=== PATIENT | male | born 1975 | race Caucasian/White ===

== ENCOUNTER 2019-11-21 08:08 | Observation (INO) ==
--- NOTE | 2019-11-14 10:44 | Anesthesiology Consultation ---
Date of Service November 14, 2019 Assessment & Plan (1) Encounter for pre-operative examination: *Per nurse phone assessment on 11/12: Travel screen negative. No known COVID-19 positive contacts or current COVID-19 related symptoms. Surgeon arranging preop COVID testing. Awaiting results. - No preop testing received: BMI >40. Will order BMP, EKG for AM DOS. Chart Review Chart Review: Acceptable Risk for Surgery (pending preop labs, EKG AM DOS) and Patient NOT seen in Pre Admission Testing History Surgery Operation Date: 11/21/19 08:35 Proposed Procedures p Tonsillectomy, Uvulectomy - Rainer Quispe MD Height/Weight Height: 5 ft 8 in Weight: 129.274 kg Allergies Allergy/AdvReac Type Severity Reaction Status Date / Time No Known Drug Allergies Allergy Unknown Verified 11/13/19 12:06 Medications Home Medications Medication Instructions Recorded Confirmed Last Taken famotidine 20 mg PO BID PRN 07/13/19 11/13/19 Unknown diphenhydramine HCl [Allergy] 25 mg PO HS PRN 11/13/19 11/13/19 Unknown Past Medical History Medical History Asthma hx Chronic back pain sciatica Laryngopharyngeal reflux disease Morbid obesity Obstructive sleep apnea CPAP, non-compliant Past Family History Family History Mother Breast cancer Grandmother Lung cancer Other Cardiac disorder No family history of adverse response to anesthesia No family history of bleeding disorder Thyroid disease Past Surgical History Surgical History History of esophagogastroduodenoscopy (EGD) History of oral surgery History of removal of cyst History of removal of skin mole S/P myringotomy with insertion of tube Social History Smoking Status: Never smoker Do You Dip or Chew Tobacco: No Hx Alcohol Use: Yes Alcohol type: beer Alcohol Intake Frequency Comment: RARELY Hx Substance Use: No
[~2019-11-21 08:08] MED LIST: LR 15ML/HR IV SCH
--- NOTE | 2019-11-21 08:49 | History & Physical Bridge Note ---
Date of Service November 21, 2019 History & Physical Bridge Note I have examined the patient, reviewed the History & Physical and in the interval since the performance of the History & Physical I have noted the following changes of clinical significance: no changes noted Patient/parent is aware of COVID-19 risk. Patient is asymptomatic of any COVID-19 symptoms. Patient has had preoperative testing for COVID-19 which was negative.
[2019-11-21] MEDS ORDERED: ONDANSETRON INJ 2 MG/ML 2 ML VIAL IV PRN (08:52)
[2019-11-21] MEDS ORDERED: DEXAMETHASONE SOD INJ 4 MG/ML VIAL ONE (09:30)
[2019-11-21] MEDS ORDERED: PROPOFOL IV EMULSION 10 MG/ML 20 ML VIAL IV ONE ×2 (09:30→10:37)
[2019-11-21] MEDS ORDERED: ONDANSETRON INJ 2 MG/ML 2 ML VIAL ONE (09:30)
[2019-11-21] MEDS ORDERED: GLYCOPYRROLATE 0.2 MG/ML VIAL ONE ×2 (09:30→10:37)
[2019-11-21] MEDS ORDERED: NEOSTIGMINE METHYLSULFATE 5 MG/5 ML SYR ONE (09:30)
[2019-11-21] MEDS ORDERED: MIDAZOLAM HCL 1 MG/ML 2ML VIAL ONE (09:30)
[2019-11-21] MEDS ORDERED: fentaNYL citrate 100 MCG/2 ML VIAL ONE ×3 (09:30→11:33)
[2019-11-21] MEDS ORDERED: LIDOCAINE HCL 2% 2 ML VIAL/AMP(20MG/ML) INFIL ONE (09:30)
[2019-11-21 09:38] LABS: BUN Creatinine Ratio 15.9 (10-20); Calcium 9.1 mg/dl (8.5-10.1); Creatinine Clr Calc Pharmacy 110.7 ml/min; Est GFR (African American) 91.1; Est GFR (Non-African American) 78.6; Potassium 4.1 mmol/L (3.5-5.1)
[2019-11-21] MEDS ORDERED: LIDOCAINE 2% JELLY 5 ML TUBE ONE (09:50)
[2019-11-21] MEDS ORDERED: ROCURONIUM BROMIDE 10 MG/ML 5 ML VIAL IV ONE (10:37)
[2019-11-21] MEDS ORDERED: LARYING-O-JET KIT (LTA) ONE (10:37)
[2019-11-21] MEDS ORDERED: OXYMETAZOLINE 0.05% 30 ML BTL ONE (10:43)
--- NOTE | 2019-11-21 11:24 | Post Operative Brief Note ---
PG Immediate Post Op with CF Date of Surgery November 21, 2019 Pre & Post Diagnosis Operation Date: 11/21/19 09:35 <No data on this case meets the specified criteria> I identified the patient and participated in the time-out.: Yes Procedure Operation Date: 11/21/19 09:35 <No data on this case meets the specified criteria> Surgeon Rainer Quispe MD Spanisher none Estimated Blood Loss 15 Findings See Below 1. 2+ tonsils, inflamed 2. Elongated, hypertrophied uvula 3, 3+ lateral pharyngeal dunham
--- NOTE | 2019-11-21 11:40 | Anesthesiology Progress Note ---
Date of Service November 21, 2019 Anesthesia Post Procedure Vital Signs Vital Signs: Temp Pulse Resp BP Pulse Ox 11/21/19 08:29 36.7 C 89 18 126/88 96 Transfer of Care Handoff Completed per policy Notes Mental Status: alert / awake / arousable Patient Amnestic to Procedure: Yes Nausea / Vomiting: adequately controlled Pain: adequately controlled Airway Patency, RR, SpO2: stable & adequate BP & HR: stable & adequate Hydration State: stable & adequate Anesthetic Complications: no major complications apparent
[2019-11-21] MEDS: HYDROmorphone INJ 1 MG/ML SYRINGE IV PRN ×7 (11:59→12:29)
[2019-11-21] MEDS ORDERED: HYDROmorphone INJ 1 MG/ML SYRINGE ONE (12:00)
--- NOTE | 2019-11-21 12:21 | Operative Report (OR) ---
DATE OF OPERATION: 11/21/2019 PREOPERATIVE DIAGNOSES: 1. Tonsillar hypertrophy. 2. Recurrent uvular edema. 3. Obstructive sleep apnea. POSTOPERATIVE DIAGNOSES: 1. Tonsillar hypertrophy. 2. Recurrent uvular edema. 3. Obstructive sleep apnea. PROCEDURE: Tonsillectomy and partial uvulectomy. SURGEON: Dr. Rainer Quispe. ANESTHESIA: General orotracheal. ESTIMATED BLOOD LOSS: 15 mL. COMPLICATIONS: None. INTRAOPERATIVE FINDINGS: 1. 2+ tonsils bilaterally. 2. Elongated uvula. 3. 3+ lateral pharyngeal dunham. SPECIMENS: 1. Right tonsil. 2. Left tonsil. 3. Partial uvulectomy. INDICATIONS FOR THE PROCEDURE: The patient is a 44-year-old male with a history of severe obstructive sleep apnea with an AHI of 32, who was seen in the office in followup after several presentations to the Emergency Room with acute pharyngeal swelling, awakening him from sleep. Each episode was treated with antibiotics and steroids with improvement, however, episodes recurred shortly after discontinuing steroid use. The patient was treated with conservative therapy, but continued to have episodes. CT imaging showed significant bilateral tonsillar hypertrophy and uvular edema was complete obstruction of the oropharyngeal airway, both during acute episodes and after treatment with steroids. He was noted to have tonsillar hypertrophy and uvular elongation in the office. It was recommended that he undergo bilateral tonsillectomy and partial uvulectomy in the operating room. The risks and benefits of the procedure were discussed in detail and the patient elected to proceed with surgery. Informed consent was obtained. A preprocedure COVID test was negative. DETAILS OF THE PROCEDURE: The patient was identified in the preoperative holding area and brought back to the operating room. After the successful induction of general orotracheal anesthesia, the head of the bed was turned 90 degrees. A shoulder roll was placed. Adequate eye protection was used. The patient was prepped and draped in the usual fashion for a tonsillectomy with partial uvulectomy. A surgical timeout was performed. The patient's neck was gently extended and a McIvor mouth gag was inserted into the oral cavity and used to expose the oropharynx. It was suspended on a Acuna stand. 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 The FIO2 was confirmed to be below 30%. The right tonsil was grasped with a curved Allis clamp and retracted medially. Electrocautery was used to carefully dissect the tonsil free from the tonsillar fossa with preservation of the muscular capsule. The tonsil was friable and diffuse oozing was noted. This was controlled with suction cautery. The tonsil was then removed from the oropharynx and passed off the table for permanent pathology. Hemostasis was achieved using suction cautery and the superior and inferior poles were prophylactically cauterized. Attention was then turned to the left tonsil, which was grasped with a curved Allis clamp and retracted medially. Electrocautery was used to carefully dissect the left tonsil free from the tonsillar fossa with preservation of the muscular capsule. Adequate hemostasis was achieved using suction cautery. The superior and inferior and poles were prophylactically cauterized. Attention was then turned to the partial uvulectomy. The inferior two-thirds of the uvula were sharply excised using tenotomy scissors. The uvular artery was encountered and cauterized using suction cautery. Sharp dissection was used to elevate the uvular mucosa over the underlying muscle to create a small flap. The uvula was closed in interrupted 3-0 Vicryl mattress sutures. The oral cavity and oropharynx were then irrigated with copious saline and suctioned clear. Adequate hemostasis was noted. An orogastric tube was used to decompress the stomach and remove from the patient. The McIvor mouth gag was then taken down from suspension and removed from the patient's oral cavity. The patient was turned over to the anesthesia team and extubated without difficulty. He was transferred to the PACU in good condition. I was present and performed the entire procedure myself. I attest to the content of the Intraoperative Record and any orders documented therein. Any exceptions are noted below. MANAV
--- NOTE | 2019-11-21 13:26 | Electrocardiogram Report ---
Test Reason : Blood Pressure : / mmHG Vent. Rate : 086 BPM Atrial Rate : 086 BPM P-R Int : 152 ms QRS Dur : 082 ms QT Int : 356 ms P-R-T Axes : 042 048 047 degrees QTc Int : 426 ms Normal sinus rhythm Nonspecific T wave abnormality Abnormal ECG No previous ECGs available Confirmed by Colt Franco ([id number]) on 11/21/2019 1:26:33 PM Referred By: Rainer Quispe Confirmed By:Colt Franco
[2019-11-21] MEDS: SODIUM CHLORIDE 0.9% 1000ML 1,000 ML IV SCH (13:33)
[2019-11-21] MEDS: OXYCODONE HCL SOLN 5 MG/5 ML UDC PO PRN ×3 (13:45→21:43)
[2019-11-21] MEDS: ACETAMINOPHEN SUSP 325 MG/10.15 ML UDC PO SCH ×2 (13:48→15:54)
[2019-11-21] MEDS: dexAMETHasone 8 MG in SYRINGE 0 ML IV SCH (18:51)
[2019-11-22] MEDS: ACETAMINOPHEN SUSP 325 MG/10.15 ML UDC PO SCH ×2 (00:01→05:59)
[2019-11-22] MEDS: OXYCODONE HCL SOLN 5 MG/5 ML UDC PO PRN ×2 (02:38→07:00)
[2019-11-22] MEDS: SODIUM CHLORIDE 0.9% 1000ML 1,000 ML IV SCH (02:38)
[2019-11-22] MEDS: dexAMETHasone 8 MG in SYRINGE 0 ML IV SCH (03:16)
--- NOTE | 2019-11-22 13:37 | Discharge Summary (DS) ---
ADMITTING DIAGNOSIS: 1. Severe obstructive sleep apnea. 2. Status post tonsillectomy and uvulectomy. DISCHARGE DIAGNOSES: Same. PROCEDURES: Tonsillectomy and uvulectomy 11/21/2019. MEDICATIONS: The patient is discharged on all home medications as well as oxycodone 5 mg per mL, 5 mg every 4 hours as needed for severe pain, acetaminophen 650 mg q. 6 hours. HOSPITAL COURSE: The patient is a 44-year-old male who underwent a tonsillectomy and partial uvulectomy 11/21/2019 for recurrent pharyngeal swelling and severe obstructive sleep apnea. There were no intraoperative complications. He was admitted to the floor for observation postoperatively given his severe obstructive sleep apnea with an AHI of 33. His hospital course was uncomplicated. He had no desaturations overnight on observation. His pain was controlled with oral medications. There were no bleeding episodes. He tolerated a p.o. diet. He was stable for discharge home on postop day 1. On the day of discharge, he was ambulating, voiding spontaneously, and tolerating a soft diet. His pain was controlled. He will follow up in 3-4 weeks or sooner if needed. PHYSICAL EXAMINATION: GENERAL: The patient is afebrile with stable vital signs, no desaturations on room air. He is well nourished and well developed and in no acute distress. He is obese. HEENT: Oropharyngeal exam reveals bilateral tonsillar fossae which are healing as expected. His sutures are in place at his partial uvulectomy site. He has a large oral tongue. He is managing his secretions well. There is no respiratory distress or stridor. DIET: Soft diet x2 weeks. ACTIVITY RESTRICTION: The patient was instructed to maintain reduced activity for 2 weeks. BATHING: No restrictions. FOLLOWUP: The patient will follow up with Dr. Quispe in 3-4 weeks or sooner if needed. I spent 30 minutes coordinating care and arranging this discharge. MANAV
== END 2019-11-22 10:30 | disposition home or self-care (01) ==
LOC: ASU 08:08 → 3N 11:24 → INTOOBSV 11:24

== ENCOUNTER 2019-11-24 21:40 | Observation (INO) ==
[2019-11-24] MEDS ORDERED: ONDANSETRON INJ 2 MG/ML 2 ML VIAL IV STA (21:57)
[2019-11-24] MEDS ORDERED: SODIUM CHLORIDE 0.9% 1000ML 1,000 ML IV ONE (21:57)
[2019-11-24] MEDS ORDERED: DEXAMETHASONE SOD INJ 10 MG/ML VIAL IV ONE (21:57)
[2019-11-24] MEDS ORDERED: MoRPHine SULFATE 4 MG/ML 1 ML CARP\\VIAL IV STA (21:57)
--- NOTE | 2019-11-24 22:05 | Emergency Department Note ---
History of Present Illness General Chief complaint: Dental/Oral Stated complaint: TONGUE SWOLLEN, CANT SWALLOW Time Seen by Provider: 11/24/19 21:51 History of Present Illness Maximum Pain Intensity: 9 This 44-year-old presents to the ER complaining of difficulty swallowing with throat swelling after recent tonsillectomy and uvulectomy by Dr. Quispe Location: Throat Quality: Hard to swallow Severity: Moderate Duration: Past few days Timing: Started a few days ago Context: Symptoms got worse and patient came in Modifying factors: better with nothing; worse with following Patient is been taking his OxyIR. Patient states he cannot tolerate the solids. He can only tolerate popsicles. He has pain with opening his mouth. He states he feels like his tongue is swollen. Patient denies chest pain, dyspnea, fevers, flulike illness. Home Medications Home Medications Medication Instructions Recorded Confirmed Type acetaminophen 1,000 mg PO QID PRN 11/24/19 11/24/19 History oxycodone 5 mg PO Q4H PRN 11/24/19 11/24/19 History Allergies Allergy/AdvReac Type Severity Reaction Status Date / Time No Known Allergies Allergy Verified 11/24/19 22:46 Past Med/Surg History Medical History Asthma hx Chronic back pain sciatica Laryngopharyngeal reflux disease Morbid obesity Obstructive sleep apnea CPAP, non-compliant Surgical History History of esophagogastroduodenoscopy (EGD) History of oral surgery History of removal of cyst History of removal of skin mole S/P myringotomy with insertion of tube Family History Mother Breast cancer Grandmother Lung cancer Other Cardiac disorder No family history of adverse response to anesthesia No family history of bleeding disorder Thyroid disease Social History Smoking Status: Never smoker Tobacco Type: Cigarettes Second Hand Exposure: Yes (FAMILY SMOKED); Hx Alcohol Use: Yes Alcohol type: beer Hx Substance Use: No Preferred Language: Belarusian Communication Ability: Effective Can Handler Required: No Beliefs That Will Affect Care: None marital status: Current Living Situation: Spouse and Family current occupational status: employed Feels Safe at Home: Yes Review of Systems A total of 10 systems reviewed and were otherwise negative Physical Exam Vital Signs Vital Signs - 24 hr 11/24/19 21:42 11/24/19 21:50 11/24/19 22:23 Temperature 36.9 C Temperature Source Oral Pulse Rate 98 H Pulse Rate [Finger] Respiratory Rate 18 Respiratory Depth Normal Blood Pressure 144/89 H Blood Pressure [Right Arm] 168/102 H Blood Pressure Mean 107 Blood Pressure Mean [Right Arm] 124 Blood Pressure Position [Right Arm] Lying Pulse Oximetry 95 95 Oxygen Delivery Method Room Air Room Air Sepsis Recent Fever Within 48 Hours No Sepsis New/Unexplained Change in Mental Status N/A Sepsis Action Taken by Nursing No Action Required 11/24/19 23:03 11/25/19 00:27 Temperature Temperature Source Pulse Rate Pulse Rate [Finger] 91 H 87 Respiratory Rate 20 18 Respiratory Depth Normal Normal Blood Pressure Blood Pressure [Right Arm] 134/84 148/88 H Blood Pressure Mean Blood Pressure Mean [Right Arm] 100 108 Blood Pressure Position [Right Arm] Pulse Oximetry 92 92 Oxygen Delivery Method Room Air Room Air Sepsis Recent Fever Within 48 Hours Sepsis New/Unexplained Change in Mental Status Sepsis Action Taken by Nursing VITALS: Vitals are noted on the nurse's note and reviewed by myself. Vital signs stable. GENERAL: Pleasant male speaking in full sentences, in no acute distress, nondiaphoretic, well-developed well-nourished. SKIN: The skin was without rashes, erythema, edema, or bruising. There is no tenting of the skin. Capillary reflex less than 2 seconds. HEAD: Normocephalic atraumatic. EARS: External auditory canals clear, tympanic membranes pearly echevarria without erythema or effusion bilaterally. EYES: Pupils equal round and reactive to light and accommodation. Conjunctivae without injection, sclerae without icterus. Extraocular movements intact. NOSE: Patent, turbinates without inflammation or discharge. No sinus tenderness. MOUTH: Mucous membranes moist. Trismus present. Pharynx healing tissue in the back of throat with no obvious bleeding. Airway patent. Tongue does not deviate. NECK: Supple without nuchal rigidity. No lymphadenopathy. No thyromegaly. Cervical spine is nontender. No JVD. HEART: Regular rate and rhythm LUNGS: Clear to auscultation bilaterally without wheezes, rales or rhonchi. No retractions or accessory muscle use. ABDOMEN: Positive bowel sounds x 4. Normal tympanic percussion. Soft, nontender, without masses or organomegaly. Borja sign negative. No guarding or rebound tenderness. No CVA tenderness MUSCULOSKELETAL: No muscle atrophy, erythema, or edema noted. NEURO: Patient was alert and oriented to person place and time. Normal sensation to light and sharp touch. No focal neurological deficits. Course Administered Medications Discontinued Medications Dexamethasone (Dexamethasone Sod Inj 10 Mg/Ml Vial) 10 mg IV NOW ONE Stop: 11/24/19 21:58 Last Admin: 11/24/19 22:15 Dose: 10 mg Documented by: [id number] Sodium Chloride (Nss 1000ml) 1,000 mls @ 999 mls/hr IV .Q1H1M ONE Stop: 11/24/19 22:57 Last Infusion: 11/24/19 23:15 Dose: 0 mls/hr Documented by: [id number] Admin: 11/24/19 22:14 Dose: 999 mls/hr Documented by: [id number] Ioversol (Ioversol 100ml) 93 ml IV ONCE ONE Stop: 11/24/19 23:29 Last Admin: 11/24/19 23:28 Dose: 93 ml Documented by: [id number] Morphine Sulfate (Morphine Sulfate 4 Mg/Ml 1 Ml Carp\Vial) 4 mg IV NOW STA Stop: 11/24/19 21:58 Last Admin: 11/24/19 22:15 Dose: 4 mg Documented by: [id number] Morphine Sulfate (Morphine Sulfate 4 Mg/Ml 1 Ml Carp\Vial) 4 mg IV NOW STA Stop: 11/25/19 00:20 Last Admin: 11/25/19 00:26 Dose: 4 mg Documented by: [id number] Ondansetron HCl (Ondansetron Inj 2 Mg/Ml 2 Ml Vial) 4 mg IV NOW STA Stop: 11/24/19 21:58 Last Admin: 11/24/19 22:15 Dose: 4 mg Documented by: [id number] Medical Decision Making Medical Records Attestation: I reviewed the patient's medical records. Home Medications Current Medication List: was personally reviewed by me Laboratory Data Attestation: I reviewed the patient's lab results. Result diagrams: 11/24/19 Unknown 11/24/19 22:23 Lab Results 11/24/19 11/24/19 Range/Units 22:23 Unknown WBC 13.74 H (4.8-10.8) K/uL RBC 5.02 (4.7-6.1) M/uL Hgb 14.4 (14.0-18.0) g/dL Hct 43.0 (42-52) % MCV 85.7 (80-100) fL MCH 28.7 (25-34) pg MCHC 33.5 (32-36) g/dL RDW Std Deviation 39.8 (36.4-46.3) fL RDW Coeff of Damaso 12.7 (11.5-14.5) % Plt Count 289 (130-400) K/uL MPV 9.2 (7.4-10.4) fL Immature Gran % (Auto) 0.6 % Neut % (Auto) 61.8 % Lymph % (Auto) 27.4 % Morris % (Auto) 7.4 % Eos % (Auto) 2.7 % Baso % (Auto) 0.1 % Neut # (Auto) 8.50 H (1.4-6.5) K/uL Lymph # (Auto) 3.76 H (1.2-3.4) K/uL Morris # (Auto) 1.01 H (0.11-0.59) K/uL Eos # (Auto) 0.37 (0-0.5) K/uL Baso # (Auto) 0.02 (0-0.2) K/uL Immature Gran # (Auto) 0.08 H (0.00-0.02) K/uL Sodium 139 (136-145) mmol/L Potassium 3.7 (3.5-5.1) mmol/L Chloride 104 (98-107) mmol/L Carbon Dioxide 28 (21-32) mmol/L Anion Gap 7.0 (3-11) BUN 17 (7-18) mg/dl Creatinine 1.06 (0.6-1.4) mg/dl Est Cr Clr Drug Dosing 116.5 ml/min Est GFR ( Amer) 98.4 Est GFR (Non-Af Amer) 84.9 BUN/Creatinine Ratio 16.0 (10-20) Glucose 102 H (70-99) mg/dl Calcium 9.2 (8.5-10.1) mg/dl Total Bilirubin 0.8 (0.2-1) mg/dl AST 14 L (15-37) U/L ALT 49 (12-78) U/L Alkaline Phosphatase 96 (45-117) U/L Total Protein 7.3 (6.4-8.2) gm/dl Albumin 3.6 (3.4-5.0) gm/dl Globulin 3.7 (2.5-4.0) gm/dl Albumin/Globulin Ratio 1.0 (0.9-2) Imaging Data Attestation: I personally reviewed and interpreted this imaging study as follows: Blood Pressure Blood Pressure Findings: Elevated blood pressure Blood Pressure Disposition: Referred to patients primary care provider [facility] Narrative Prior records reviewed and summarized as above. Triage Nursing notes reviewed. Additional history obtained from family. The patient's history was concerning for swelling and pain in the mouth after surgery Differential diagnosis: Etiologies such as postoperative complication, soft tissue swelling, cellulitis, abscess, MRSA infection, as well as others were entertained.. Physical examination: As above ER treatment provided: Morphine, Zofran, IV fluids, Decadron On reassessment the patient felt better. Diagnostics interpreted by me: The labs revealed mild leukocytosis Imaging studies: CT NECK: Mild soft tissue edema within the subcutaneous fat of the chin. No fluid collection. Secretions within the vallecula. Patent vasculature. Tonsils are unremarkable. No acute abnormality within the parotid, sublingual, or thyroid glands. No acute osseous abnormality. Airspace opacities in the right upper lobe, infectious or inflammatory. Radiologist: Jacob Johnson MD Consultation: A consultation was placed with ENT on-call, Dr. Kelley and recommends hydration and medical admission. Dr. Hadley was consulted and will evaluate the patient. The case was discussed and diagnostics were reviewed. The patient was evaluated in the ER for further treatment. This appears to be dehydration secondary to postsurgical pain. Patient was hydrated as above. He is unable to swallow and will be admitted for hydration. Medicine and ENT were consulted. By the evaluation outlined above emergent etiologies such as abscess, as well as others were deemed relatively unlikely. The pt informed about the findings as listed above. All questions were answered and pleased with the treatment. The chart was completed utilizing [employer] voice recognition software. Grammatical errors, random word insertions, pronoun errors, and incomplete sentences are an occassional consequence of this system due to software limitations, ambient noise, and hardware issues. Any formal questions or concerns about the content, text, or information contained within the body of this dictation should be directly addressed to the physician driller's assistant for clarification. Impression & Plan Acute dehydration, History of oral surgery, Acute oral pain Discharge Plan Visit Data Chief Complaint: Dental/Oral Stated Complaint: TONGUE SWOLLEN, CANT SWALLOW ED Provider: Miguel Mercer ED Midlevel Provider: Renee Singh Discharge Problem: Acute dehydration, History of oral surgery, Acute oral pain Patient Disposition: Being Evaluated by Hospitalist Condition: Good Forms Stand Alone Forms: [facility] [place] [employer] Prescriptions Prescriptions: No Action oxycodone 5 mg/5 mL solution 5 mg PO Q4H PRN (Reason: Pain) RF: 0 acetaminophen 160 mg/5 mL Suspension 1,000 mg PO QID PRN (Reason: Pain) RF: 0 Referrals Referrals: Lavon Coleman MD [Primary Care Provider] -
[2019-11-24 22:39] LABS: Basophils # (auto) 0.02 K/uL (0-0.2); Basophils % (auto) 0.1 %; Eosinophils # (auto) 0.37 K/uL (0-0.5); Eosinophils % (auto) 2.7 %; Hemoglobin 14.4 g/dL (14.0-18.0); Immature Granulocytes # (auto) 0.08 K/uL (0.00-0.02); Immature Granulocytes % (auto) 0.6 %; Lymphocytes # (auto) 3.76 K/uL (1.2-3.4); Lymphocytes % (auto) 27.4 %; Mean Corpuscular Hemoglobin 28.7 pg (25-34); Mean Corpuscular Hgb Conc 33.5 g/dL (32-36); Mean Corpuscular Volume 85.7 fL (80-100); Mean Platelet Volume 9.2 fL (7.4-10.4); Monocytes # (auto) 1.01 K/uL (0.11-0.59); Monocytes % (auto) 7.4 %; Neutrophils % (auto) 61.8 %; Platelet Count 289 K/uL (130-400); RDW Coefficient of Variation 12.7 % (11.5-14.5); RDW Standard Deviation 39.8 fL (36.4-46.3); Red Blood Count 5.02 M/uL (4.7-6.1); White Blood Count 13.74 K/uL (4.8-10.8)
[2019-11-24 22:57] LABS: Albumin Level 3.6 gm/dl (3.4-5.0); Calcium 9.2 mg/dl (8.5-10.1); Creatinine Clr Calc Pharmacy 116.5 ml/min; Est GFR (African American) 98.4; Est GFR (Non-African American) 84.9; Potassium 3.7 mmol/L (3.5-5.1)
[2019-11-24 23:00] LABS: Bilirubin,Total 0.8 mg/dl (0.2-1); Globulin 3.7 gm/dl (2.5-4.0); Total Protein 7.3 gm/dl (6.4-8.2)
[2019-11-24] MEDS ORDERED: IOVERSOL 100ml IV ONE (23:28)
[2019-11-25] MEDS ORDERED: MoRPHine SULFATE 4 MG/ML 1 ML CARP\\VIAL IV STA (00:19)
[2019-11-25] MEDS ORDERED: ALBUT/IPRATROP 3MG/0.5MG NEB 3 ML VIAL NEB PRN (01:06)
--- NOTE | 2019-11-25 01:09 | History & Physical Report ---
Date of Service November 25, 2019 Assessment & Plan (1) Post-tonsillectomy pain: Post tonsillectomy pain/odynophagia- Acetaminophen 1000 mg IV every 8 hours PRN mild pain or temperature. Morphine sulfate 4 mg IV every 3 hours as needed severe pain Present on Admission?: Yes (2) Odynophagia: See above Present on Admission?: Yes (3) Aspiration pneumonia due to saliva: Aspiration pneumonia due to saliva/hypoxia Pulse ox in the room witnessed by me to be 90 to 93% on room air NPO except medications. CT scan of soft tissues of neck, shows airspace opacities in the right upper lobe, infectious or inflammatory Zosyn 3.375 mg IV every 8 hours. Order follow-up portable chest x-ray. Duo nebs every 2 hours as needed. Present on Admission?: Yes (4) Hypoxia: See above Present on Admission?: Yes (5) Laryngopharyngeal reflux disease: Famotidine 20 mg IV every 12 hours Present on Admission?: Yes (6) Asthma: Duonebs every 2 hours when necessary. Present on Admission?: Yes (7) Obstructive sleep apnea: Patient been noncompliant with CPAP at home. If necessary will place on CPAP at bedtime while in hospital Present on Admission?: Yes History of Present Illness Chief Complaint: The patient presents to the emergency department with a relatively acute onset of difficulty swallowing due to pain, and inability to handle oral secretions when he is swallowing Primary Care Provider: Lavon Coleman MD The patient is a 44-year-old male with a past medical history including tonsillar hypertrophy, obstructive sleep apnea, laryngeal pharyngeal reflux disease and asthma. He had undergone a tonsillectomy by Dr. Quispe on 11/21/2019, and had been taking oxycodone every 4 hours for pain control. He had been doing reasonably well until earlier this evening, he developed more acute pain, and difficulty with controlling secretions. He does also report an occasional cough when laying on his right side. He denies any recent travels or sick exposures. He reports he is not really eaten anything since prior to the surgery, and has not had any bowel movement since the day before surgery. Allergies Allergy/AdvReac Type Severity Reaction Status Date / Time No Known Allergies Allergy Verified 11/24/19 22:46 Home Medications Home Medications Medication Instructions Recorded Confirmed Type acetaminophen 1,000 mg PO QID PRN 11/24/19 11/24/19 History oxycodone 5 mg PO Q4H PRN 11/24/19 11/24/19 History Past Med/Surg History Medical History Asthma hx Chronic back pain sciatica Laryngopharyngeal reflux disease Morbid obesity Obstructive sleep apnea CPAP, non-compliant Surgical History History of esophagogastroduodenoscopy (EGD) History of oral surgery History of removal of cyst History of removal of skin mole S/P myringotomy with insertion of tube Family History Mother Breast cancer Grandmother Lung cancer Other Cardiac disorder No family history of adverse response to anesthesia No family history of bleeding disorder Thyroid disease Social History Smoking Status: Never smoker Tobacco Type: Cigarettes Second Hand Exposure: Yes (FAMILY SMOKED); Hx Alcohol Use: Yes Alcohol type: beer Hx Substance Use: No Preferred Language: Iranian Communication Ability: Effective Steward/Stewardess Dining Room Required: No Beliefs That Will Affect Care: None marital status: Current Living Situation: Spouse and Family current occupational status: employed Feels Safe at Home: Yes Review of Systems Review of Systems: The patient denies chest pain, palpitations, shortness of breath, dyspnea on exertion, lower extremity swelling, fevers, chills, sweats, weight change, fatigue, nausea, vomiting, diarrhea, abdominal pain, pelvic pain, blood in urine or stool, dysuria, urinary frequency or urgency, lightheadedness, dizziness, headache, memory loss, loss of consciousness, rash, abnormal bruising or bleeding, imbalance, focal or generalized weakness, numbness or tingling in arms or legs, generalized arthralgias or myalgias, back or neck pain, or night sweats. The review of systems is otherwise negative other than for that already noted above, and at least 10 systems have been reviewed. Physical Exam Physical Exam: The patient is awake, alert and oriented 3, well developed and well nourished, normocephalic and atraumatic, lying in bed and in no acute distress. HEENT--PERRL, EOMI, mucous membranes and oropharynx dry. Neck--supple. No JVD. No bruits. Thyroid normal, trachea midline, no adenopathy. Heart--normal S1 and S2. No murmurs, rubs or gallops. Lungs--few coarse breath sounds right upper lobe area. No respiratory distress, no accessory muscle use. Abdomen--normal bowel sounds and soft. Nontender. Nondistended. Morbid obesity Extremities--no cyanosis or clubbing. No edema. Dermatologic--normal skin turgor, normal color, no abnormal lymph nodes, no rash. Neurologic--cranial nerves II through XII grossly intact. Rheumatologic--normal range of motion. Psychiatric--normal affect. Results & Data Results & Data ([facility]) Vital Signs (Past 12 Hours) Vital Signs Temp Pulse Pulse Resp BP BP Pulse Ox 11/25/19 00:27 87 18 148/88 H 92 11/24/19 23:03 91 H 20 134/84 92 11/24/19 22:23 95 11/24/19 21:50 168/102 H 11/24/19 21:42 98.4 F 98 H 18 144/89 H 95 Laboratory Results Laboratory Results WBC 13.74 K/uL (4.8-10.8) H 11/24/19 Unknown RBC 5.02 M/uL (4.7-6.1) 11/24/19 Unknown Hgb 14.4 g/dL (14.0-18.0) 11/24/19 Unknown Hct 43.0 % (42-52) 11/24/19 Unknown MCV 85.7 fL (80-100) 11/24/19 Unknown MCH 28.7 pg (25-34) 11/24/19 Unknown MCHC 33.5 g/dL (32-36) 11/24/19 Unknown RDW Std Deviation 39.8 fL (36.4-46.3) 11/24/19 Unknown RDW Coeff of Damaso 12.7 % (11.5-14.5) 11/24/19 Unknown Plt Count 289 K/uL (130-400) 11/24/19 Unknown MPV 9.2 fL (7.4-10.4) 11/24/19 Unknown Immature Gran % (Auto) 0.6 % 11/24/19 Unknown Neut % (Auto) 61.8 % 11/24/19 Unknown Lymph % (Auto) 27.4 % 11/24/19 Unknown [place] % (Auto) 7.4 % 11/24/19 Unknown Eos % (Auto) 2.7 % 11/24/19 Unknown Baso % (Auto) 0.1 % 11/24/19 Unknown Neut # (Auto) 8.50 K/uL (1.4-6.5) H 11/24/19 Unknown Lymph # (Auto) 3.76 K/uL (1.2-3.4) H 11/24/19 Unknown [place] # (Auto) 1.01 K/uL (0.11-0.59) H 11/24/19 Unknown Eos # (Auto) 0.37 K/uL (0-0.5) 11/24/19 Unknown Baso # (Auto) 0.02 K/uL (0-0.2) 11/24/19 Unknown Immature Gran # (Auto) 0.08 K/uL (0.00-0.02) H 11/24/19 Unknown Sodium 139 mmol/L (136-145) 11/24/19 22:23 Potassium 3.7 mmol/L (3.5-5.1) 11/24/19 22:23 Chloride 104 mmol/L (98-107) 11/24/19 22:23 Carbon Dioxide 28 mmol/L (21-32) 11/24/19 22:23 Anion Gap 7.0 (3-11) 11/24/19 22:23 BUN 17 mg/dl (7-18) 11/24/19 22:23 Creatinine 1.06 mg/dl (0.6-1.4) 11/24/19 22:23 Est Cr Clr Drug Dosing 116.5 ml/min 11/24/19 22:23 Est GFR ( Amer) 98.4 11/24/19 22:23 Est GFR (Non-Af Amer) 84.9 11/24/19 22:23 BUN/Creatinine Ratio 16.0 (10-20) 11/24/19 22:23 Glucose 102 mg/dl (70-99) H 11/24/19 22:23 Calcium 9.2 mg/dl (8.5-10.1) 11/24/19 22:23 Total Bilirubin 0.8 mg/dl (0.2-1) 11/24/19 22:23 AST 14 U/L (15-37) L 11/24/19 22:23 ALT 49 U/L (12-78) 11/24/19 22:23 Alkaline Phosphatase 96 U/L (45-117) 11/24/19 22:23 Total Protein 7.3 gm/dl (6.4-8.2) 11/24/19 22:23 Albumin 3.6 gm/dl (3.4-5.0) 11/24/19 22:23 Globulin 3.7 gm/dl (2.5-4.0) 11/24/19 22:23 Albumin/Globulin Ratio 1.0 (0.9-2) 11/24/19 22:23 Diagnostic Findings [facility] Patient: XOCHITL CHEN (Male) : 75 Status: ER Date: 11/24/19 23:31 Room #: History: recent OR, severe pain/swelling Slices: [phone] Priors: Tech: Becca Robert @ [phone] Exams: CT NECK Contrast: IV Amt: 93 ml optiray 320 Accession Numbers: [id number] Preliminary Findings Only See Final Report For Complete Findings CT NECK: Mild soft tissue edema within the subcutaneous fat of the chin. No fluid collection. Secretions within the vallecula. Patent vasculature. Tonsils are unremarkable. No acute abnormality within the parotid, sublingual, or thyroid glands. No acute osseous abnormality. Airspace opacities in the right upper lobe, infectious or inflammatory. Radiologist: Jacob Johnson MD Study ready at 23:39 and initial results transmitted at 23:54 *This report constitutes a preliminary interpretation only. Non-acute findings felt to be unrelated to the clinical presentation may not be discussed in this report. The study will be interpreted and a final report will be generated by the local Radiologist the following shift. To reach the hospital radiology department call [phone]. If a discrepancy is found between the preliminary and final interpretations of this study, please notify us via our Client Portal at [email or web address], under QA Exams.You can also fax this report with a description of the discrepancy, or include the final report, to our daytime fax number [phone].If faxing, please indicate the severity of discrepancy using one of the following categories: [ ] 1 - Agree/Informational [ ] 2 - Unlikely to Affect Management [ ] 3 - Possible Eventual Change of Management [ ] 4 - Probable Immediate Change of Management For all other patient related information, please fax us at [phone]. [id number] Code Status & VTE Plan Code Status Full code VTE Prophylaxis Plan VTE Prophylaxis will be ordered: Yes PG Care Time/CCT Total # of Minutes Spent Total Time Spent with Patient: Total time spent is greater than 50% in coordination of care (as documented) at patient's floor/unit and/or counseling patient: Coding Level of Care Code 51529 OBS Care - Level 3 Diagnoses Post-tonsillectomy pain G89.18; Z90.89 Odynophagia R13.10 Aspiration pneumonia due to saliva J69.0 Hypoxia R09.02 Laryngopharyngeal reflux disease K21.9 Asthma J45.909 Obstructive sleep apnea G47.33
[2019-11-25] MEDS ORDERED: ONDANSETRON INJ 2 MG/ML 2 ML VIAL IV PRN (01:56)
[2019-11-25] MEDS ORDERED: ACETAMINOPHEN 1,000 MG/100 ML VIAL IV PRN (01:56)
[2019-11-25] MEDS ORDERED: PIPERACILL/TAZOBAC CONSULT ACTIVE PRN (01:56)
[2019-11-25] MEDS ORDERED: NSS + 20MEQ KCL 20 MEQ/1,000 ML BAG IV SCH (01:56)
[2019-11-25] MEDS ORDERED: PIPERACILLIN/TAZOBACTAM 4.5 GM in DEXTROSE 5% 100 ML IV SCH ×2 (02:30→08:00)
[2019-11-25] MEDS: dexAMETHasone 4 MG in DEXTROSE 5% 25 ML IV SCH ×2 (04:04→10:43)
[2019-11-25] MEDS: MoRPHine SULFATE 4 MG/ML 1 ML CARP\\VIAL IV PRN ×2 (04:08→07:24)
--- NOTE | 2019-11-25 07:59 | CT Scan Report ---
CT soft tissue neck w con HISTORY: Severe pain and swelling within the neck. TECHNIQUE: Multiaxial CT images of the neck were performed following the use of intravenous contrast. COMPARISON STUDY: Neck CT 05/16/2019. FINDINGS: The visualized brain parenchyma and orbits are unremarkable. Mild mucosal thickening within the maxillary and sphenoid sinuses. The mastoid air cells are clear. Mild skin thickening and subcut aneous edema at the chin, unchanged. There is secretions and soft tissue thickening at the uvula and palatine tonsils resulting in moderate airway narrowing. This has improved in the interval. The uvula is thickened up to 1.5 cm. Prevertebral soft tissues and the epiglottis are normal in thickness. Sub centimeter cervical lymph nodes do not meet CT criteria for pathologic involvement. The parotid and s ubmandibular glands are symmetric. Small patchy groundglass densities within the right upper lobe. No pneumothorax. No fractures within the visualized osseous structures. The major cervical vessels appe ar patent. IMPRESSION: Thickening at the uvula and soft palate as well as mucosal thickening at the level of the palatine to nsils with associated secretions and moderate airway narrowing. This is improved in the interval. Dir ect visualization recommended for further evaluation. ACT 112: Negative or not required by law. Electronically signed by: Sunny Worrell M.D. 11/25/2019 7:57 AM
--- NOTE | 2019-11-25 08:35 | XRay Report ---
XR chest 1V portable HISTORY: aspiration pneumonia COMPARISON: None. FINDINGS: The lungs are clear. Cardiac silhouette is normal in size. No pleural effusions. No pneumot horax. IMPRESSION: No acute process. ACT 112: Negative or not required by law. Electronically signed by: Sunny Worrell M.D. 11/25/2019 8:33 AM
[2019-11-25] MEDS ORDERED: FAMOTIDINE 20 MG in SYRINGE 3 ML IV SCH (09:00)
[2019-11-25] MEDS ORDERED: ACETAMINOPHEN/HYDROCODONE ELIX 15 ML/CUP UDP PO PRN (11:33)
--- NOTE | 2019-11-25 14:51 | Discharge Summary ---
Date of Service November 25, 2019 Admission HPI Per Admitting Provider The patient is a 44-year-old male with a past medical history including tonsillar hypertrophy, obstructive sleep apnea, laryngeal pharyngeal reflux disease and asthma. He had undergone a tonsillectomy by Dr. Quispe on 11/21/2019, and had been taking oxycodone every 4 hours for pain control. He had been doing reasonably well until earlier this evening, he developed more acute pain, and difficulty with controlling secretions. He does also report an occasional cough when laying on his right side. He denies any recent travels or sick exposures. He reports he is not really eaten anything since prior to the surgery, and has not had any bowel movement since the day before surgery. Principal Diagnosis post op pain, difficulty swallowing Discharge Exam Constitutional WD/WN, vitals as above ENMT some areas of edema around periphery of tongue, able to visualize tonsillar area where surgery was done but can't quite see to back of throat. Respiratory normal respiratory effort, lungs clear to auscultation (no stridor) Cardiovascular RRR, no murmur, no edema Gastrointestinal (Abdomen) normal bowel sounds, soft, nontender, no hepatosplenomegaly Musculoskeletal no cyanosis or clubbing, extremities motor strength 5/5 Skin no rashes, warm and dry Neurologic moves all extremities and awake Psychiatric A+Ox3, euthymic affect Discharge Data Allergies Allergy/AdvReac Type Severity Reaction Status Date / Time No Known Allergies Allergy Verified 11/24/19 22:46 Consultations 11/25/19 00:10 ED Decision to Admit Stat 11/25/19 01:56 Consult Case Management - Discharge Planning Routine Ordered Studies 11/24/19 21:57 CT soft tissue neck w con Urgent Hospital Course (1) Post-tonsillectomy pain: Post tonsillectomy pain/odynophagia- Acetaminophen 1000 mg IV every 8 hours PRN mild pain or temperature. Morphine sulfate 4 mg IV every 3 hours as needed severe pain (2) Odynophagia: See above (3) Aspiration pneumonia due to saliva: Aspiration pneumonia due to saliva/hypoxia - equivocal finding - CT scan of soft tissues of neck, shows airspace opacities in the right upper lobe, infectious or inflammatory however nothing acute on CXR. Patient does have mild leukocytosis but could be secondary to post op inflammation although it's pod #4 so a bit late for it. No fever, no cough, no sob. Pulse ox in the room witnessed by admitting physician to be 90 to 93% on room air Advanced to clear diet and tolerating, able to swallow, feeling much better Zosyn 3.375 mg IV every 8 hours - will give a Zpack for home (4) Hypoxia: Resolved. Has maintained saturations above 92% or above while here (5) Laryngopharyngeal reflux disease: Famotidine 20 mg IV every 12 hours (6) Asthma: Duonebs every 2 hours when necessary. (7) Obstructive sleep apnea: Patient been noncompliant with CPAP at home. Total Time Total Time Spent Total Time Spent (In Minutes): greater than 30 minutes Discharge Plan Discharge Items Patient Disposition: Home - Self-Care Reason For Visit: ODYNOPHAGIA, ASPIRATION PNEUMONIA Discharge Diagnosis: Difficulty swallowing Condition on Discharge: Good Activity: Resume your previous activity Driving/Machine Use: do not drive while taking narcotics Non-emergency contact: Primary Care Provider and Surgeon Call non-emergency contact if: you have any medication questions, your symptoms worsen and you have a fever Follow-up/Referrals: Lavon Coleman MD [Primary Care Provider] - (Follow up in one week ) Diet: Clear liquid Diet Comment: advance your diet as tolerated Addtl Attending Provider Instructions: (1) Post-tonsillectomy pain: I will change your pain medication to hydrocodone/acetaminophen to see if this medication is less nauseating. Please discontinue the oxycodone. Taking oxycodone and hydrocodone together could cause dangerous levels of sedation. Avoid non steroidal anti-inflammatories such as ibuprofen, naproxen and aspirin You can take acetaminophen over the counter. Be sure to not exceed 3000 mg of acetaminophen total in 24 hours including the acetaminophen that is combined with the hydrocodone (2) Aspiration pneumonia: As seen on your CT but not on the chest X ray - will give short course of azithromycin for home. Please see your primary care provider right away if you develop a cough, sob, or fever. Pending Studies at Discharge: No Stand-Alone Forms: My [facility] Matter and Form, Smoking Cessation Medications and DC Order Prescriptions: New azithromycin 500 mg tablet See Rx Instructions .ROUTE .COMPLEX Qty: 6 RF: 0 hydrocodone-acetaminophen 7.5-325 mg/15 mL solution 10 ml PO Q4H Qty: 118 RF: 0 Continued acetaminophen 160 mg/5 mL Suspension 1,000 mg PO QID PRN (Reason: Pain) RF: 0 Discontinued oxycodone 5 mg/5 mL solution 5 mg PO Q4H PRN (Reason: Pain) RF: 0 No Action methylprednisolone [Medrol (Jorge)] 4 mg tablets,dose pack 4 mg PO DAILY Qty: 21 RF: 0 Discharge Orders: Discharge Order (Routine); Ordered 11/25/19 Ordered By: Abi Gongora Admission Data Admit Date/Time: 11/25/19 00:54 Attending Provider: Fer Aleman Admit Provider: Anders Rivas Primary Care Provider: Lavon Coleman Other Providers: Anders Rivas Other Interventions: Discharge Summary Assessment (RN) Last Done: 11/25/19 15:25 Supervising Physician Co-Signing Physician Notes Patient seen and examined on the day of discharge. I agree with the discharge summary by Abi BRUMFIELD. I have reviewed the chart including labs, imaging and plans for discharge. patient feeling better since time of admission discussed with ENT, recommend pain control and short course of steroids - Sore throat, difficulty swallowing after tonsillectomy change to liquid [place] as it is easier for him to swallow complete a Medrol dose pack Zithromax x 5 days for possible pneumonia Coding Level of Care Code D/C Day Management >30 mins Diagnoses Post-tonsillectomy pain G89.18; Z90.89 Odynophagia R13.10 Aspiration pneumonia due to saliva J69.0 Hypoxia R09.02 Laryngopharyngeal reflux disease K21.9 Asthma J45.909 Obstructive sleep apnea G47.33
[2019-11-25] MEDS ORDERED: DEXAMETHASONE SOD PHOSPHATE 4 MG in SYRINGE 0 ML IV SCH (16:00)
== END 2019-11-25 15:40 | disposition home or self-care (01) ==
LOC: ED 21:40 → 2W 21:40 → SUATTDRO 11-25 00:54 → 2W 11-25 01:33
DX: Z99.89 Dependence on other enabling machines and devices; E66.01 Morbid (severe) obesity due to excess calories; J45.909 Unspecified asthma, uncomplicated; Z68.41 Body mass index [BMI] 40.0-44.9, adult; J69.0 Pneumonitis due to inhalation of food and vomit; Z91.19 Patient's noncompliance with other medical treatment and regimen; G47.33 Obstructive sleep apnea (adult) (pediatric); K21.9 Gastro-esophageal reflux disease without esophagitis; G89.18 Other acute postprocedural pain; R13.10 Dysphagia, unspecified